=== PATIENT | male | born 1955 | race Hispanic/Latino ===

== ENCOUNTER → 2018-06-11 | Outpatient (CLI) | payer OTHER ==
--- NOTE | 2018-06-11 11:29 | Diagnostic Imaging Report ---
PROCEDURE:US LIVER COMPARISON:None. INDICATIONS:ALCOHOLIC CIRRHOSIS W/O ASCITES TECHNIQUE: Gonsalves-scale and color doppler transverse and longitudinal images of the right upper quadrant of the abdomen were obtained. FINDINGS: Liver: 12 cm in right mid-clavicular line. Increased echogenicity. Nodular contour. No masses. 1.9 cm subcapsular left lobe cyst. Main portal vein: 0.7 cm Gallbladder: 1.8 cm gallstone. Common Bile Duct: 0.3 cm Sonographic Henriquez's sign: Negative Right kidney: 12.2 cm. Normal echogenicity. No solid masses or hydronephrosis. 3.8 x 3.5 x 4.7 cm mid/inferior pole cyst. Pancreas: The visualized portions are unremarkable. Inferior vena cava: Patent Aorta: Atherosclerotic disease of the abdominal aorta. Ascites: None in the right upper quadrant of the abdomen. CONCLUSION: Cirrhotic changes of the liver as well as steatosis. Cholelithiasis without evidence of cholecystitis. 4.7 cm right renal cyst. Anechoic 1.9 cm lesion abutting the left hepatic lobe, likely a subcapsular cyst. Dictated by: Akhil Rodriguez M.D. on 06/11/2018 at 11:33 Electronically approved by: Akhil Rodriguez M.D. on 06/11/2018 at 11:33
== END ==
LOC: US 09:35
PROVIDERS: ATTEND Internal Medicine Gastroenterology
DX: K70.30 Alcoholic cirrhosis of liver without ascites (principal)
CPT/HCPCS: 76705

== ENCOUNTER 2018-06-16 12:58 | Observation (INO) | payer OTHER ==
[~2018-06-16] VITALS: Ht 165.1 cm; Wt 86.6 kg
[2018-06-16] MEDS ORDERED: ASPIRIN 325 MG TAB PO ONE (13:15)
[2018-06-16 13:28] LABS: BASOPHILS % 0.6 % (0.0-1.0); EOSINOPHILS # (AUTO) 0.1 (0.0-0.4); EOSINOPHILS % 1.1 % (0.0-6.0); HEMATOCRIT 36.6 % (38.2-49.6); HEMOGLOBIN 12.4 g/dL (14.0-18.0); LYMPHOCYTES % 44.8 % (18.0-39.1); MEAN CORPUSCULAR HEMOGLOBIN 31.6 pg (28-32); MEAN CORPUSCULAR HGB CONC 33.9 g/dL (31-35); MEAN CORPUSCULAR VOLUME 93.1 fL (81-99); MONOCYTES # (AUTO) 0.7 (0.2-0.8); MONOCYTES % 10.7 % (4.4-11.3); NEUTROPHILS # (AUTO) 2.8 (2.1-6.9); NEUTROPHILS % 42.3 % (38.7-80.0); PLATELET COUNT 174 x10e3/uL (140-360); RED BLOOD COUNT 3.93 x10e6/uL (4.3-5.7); RED CELL DISTRIBUTION WIDTH 14.1 % (11.7-14.4)
[2018-06-16] MEDS ORDERED: ASPIRIN 81 MG CHEW TAB PO ONE ×2 (13:30→15:00)
[2018-06-16 13:38] LABS: INR 1.02; PROTHROMBIN TIME 12.6 seconds (11.9-14.5)
[2018-06-16 13:39] LABS: PARTIAL THROMBOPLASTIN TIME 31.2 seconds (23.8-35.5)
[2018-06-16 13:48] LABS: ALANINE AMINOTRANSFERASE 28 IU/L (0-55); ALBUMIN 3.8 g/dL (3.5-5.0); ALBUMIN/GLOBULIN RATIO 1.3 (0.8-2.0); ALKALINE PHOSPHATASE 83 IU/L (40-150); ANION GAP 13.4 mmol/L (8-16); BLOOD UREA NITROGEN 12 mg/dL (7-26); BUN/CREATININE RATIO 16 (6-25); CALCIUM 9.3 mg/dL (8.4-10.2); CARBON DIOXIDE 27 mmol/L (22-29); CHLORIDE 104 mmol/L (98-107); CREATINE KINASE 99 IU/L (30-200); CREATININE, SERUM 0.74 mg/dL (0.72-1.25); EST GLOMERULAR FILTRATION RATE > 60 ML/MIN (60-); GLUCOSE 134 mg/dL (74-118); POTASSIUM 3.4 mmol/L (3.5-5.1); SODIUM 141 mmol/L (136-145)
--- NOTE | 2018-06-16 14:16 | Diagnostic Imaging Report ---
EXAMINATION: CHEST SINGLE (NOT PORTABLE) HISTORY: Chest pain. COMPARISON: None FINDINGS: TUBES and LINES: None. LUNGS: Lungs are mildly hypoinflated bilaterally. Mild bibasilar subsegmental atelectasis. There is no evidence of pneumonia or pulmonary edema. PLEURA: No pleural effusion or pneumothorax. HEART AND MEDIASTINUM: The cardiomediastinal silhouette is magnified by portable technique. BONES AND SOFT TISSUES: No acute osseous lesion. Soft tissues are unremarkable. UPPER ABDOMEN: No free air under the diaphragm. IMPRESSION: No acute thoracic abnormality. Signed by: Dr. Mike Camarena M.D. on 06/16/2018 2:12 PM
[2018-06-16] MEDS ORDERED: SPIRONOLACTONE25 MG PO (14:49)
[2018-06-16] MEDS ORDERED: METFORMIN HCL500 MG PO (14:49)
[2018-06-16] MEDS ORDERED: FERROUS SULFAT325 MG PO (14:49)
[2018-06-16] MEDS ORDERED: FOLIC ACID1 MG PO (14:49)
[2018-06-16] MEDS ORDERED: LISINOPRIL-HCT1 EAC2 PO (14:49)
[2018-06-16 16:30] VITALS: BP 149/70
[2018-06-16] MEDS ORDERED: DEXTROSE 50% SYRINGE 50 ML IV PRN (16:30)
[2018-06-16] MEDS: INSULIN LISPRO 100 UNIT/1 ML 3ML VIAL SQ SCH ×2 (16:30→20:59)
[2018-06-16 17:08] VITALS: BP 149/70
[2018-06-16 17:10] VITALS: BP 149/70
[2018-06-16 17:14] VITALS: BP 149/70
[2018-06-16] MEDS ORDERED: HYDRALAZINE HCL 20 MG/ML VIAL IV PRN (18:45)
[2018-06-16] MEDS ORDERED: ACETAMINOPHEN 325 MG TAB PO PRN (18:45)
[2018-06-16] MEDS ORDERED: ONDANSETRON HCL INJ 2 MG/ML VIAL IV PRN (18:45)
[2018-06-16] MEDS ORDERED: POTASSIUM CHLORIDE 20 MEQ TAB CR PO NR (18:51)
[2018-06-16] MEDS ORDERED: MORPHINE SULFATE INJ 4 MG/ML INJ IV PRN (19:00)
[2018-06-16 20:00] VITALS: BP 115/66
[2018-06-17] VITALS (11 sets, daily range): BP systolic 101–128; BP diastolic 60–70
[2018-06-17 05:21] LABS: BASOPHILS % 0.7 % (0.0-1.0); EOSINOPHILS # (AUTO) 0.1 (0.0-0.4); HEMATOCRIT 34.8 % (38.2-49.6); HEMOGLOBIN 11.7 g/dL (14.0-18.0); LYMPHOCYTES # (AUTO) 2.5 (1.0-3.2); MEAN CORPUSCULAR HEMOGLOBIN 31.4 pg (28-32); MEAN CORPUSCULAR HGB CONC 33.6 g/dL (31-35); MEAN CORPUSCULAR VOLUME 93.3 fL (81-99); MONOCYTES # (AUTO) 0.5 (0.2-0.8); MONOCYTES % 8.8 % (4.4-11.3); NEUTROPHILS # (AUTO) 2.4 (2.1-6.9); PLATELET COUNT 160 x10e3/uL (140-360); RED BLOOD COUNT 3.73 x10e6/uL (4.3-5.7)
[2018-06-17 05:34] LABS: CHOL/HDL RATIO 3.3 (3.9-4.7)
[2018-06-17 05:44] LABS: ANION GAP 14.9 mmol/L (8-16); BLOOD UREA NITROGEN 11 mg/dL (7-26); BUN/CREATININE RATIO 16 (6-25); CARBON DIOXIDE 25 mmol/L (22-29); CHLORIDE 106 mmol/L (98-107); EST GLOMERULAR FILTRATION RATE > 60 ML/MIN (60-); GLUCOSE 100 mg/dL (74-118); MAGNESIUM 1.9 MG/DL (1.3-2.1); POTASSIUM 3.9 mmol/L (3.5-5.1); SODIUM 142 mmol/L (136-145)
[2018-06-17 05:51] LABS: CREATINE KINASE 54 IU/L (30-200)
[2018-06-17] MEDS: INSULIN LISPRO 100 UNIT/1 ML 3ML VIAL SQ SCH ×4 (07:30→19:47)
[2018-06-17] MEDS: FAMOTIDINE 20 MG TAB PO SCH ×2 (07:44→16:28)
[2018-06-17] MEDS: LISINOPRIL 10 MG TAB PO SCH (09:01)
[2018-06-17] MEDS: SPIRONOLACTONE 25 MG TAB PO SCH (09:01)
[2018-06-17] MEDS: ASPIRIN 81 MG ENTERIC COATED PO SCH (09:01)
[2018-06-17] MEDS: ENOXAPARIN SOD INJ 40 MG/0.4 ML SYR SC SCH (09:02)
[2018-06-17] MEDS ORDERED: HYDRALAZINE HCL 20 MG/ML VIAL IV PRN (09:45)
[2018-06-17] MEDS ORDERED: METOPROLOL TARTRATE INJ 1 MG/ML VIAL IV PRN (09:45)
[2018-06-17 10:01] LABS: ALBUMIN 3.4 g/dL (3.5-5.0); BILIRUBIN,DIRECT 0.4 mg/dL (0.0-0.5); MAGNESIUM 1.9 MG/DL (1.3-2.1)
[2018-06-17 10:20] LABS: THYROID STIMULATING HORMONE 1.786 uIU/mL (0.350-4.940)
[2018-06-17 13:21] LABS: CREATINE KINASE MB 0.8 ng/mL (0-5.0)
[2018-06-18 04:00] VITALS: BP 111/71
[2018-06-18 05:18] LABS: BASOPHILS % 0.6 % (0.0-1.0); EOSINOPHILS # (AUTO) 0.1 (0.0-0.4); EOSINOPHILS % 2.5 % (0.0-6.0); HEMATOCRIT 34.4 % (38.2-49.6); HEMOGLOBIN 11.7 g/dL (14.0-18.0); LYMPHOCYTES # (AUTO) 1.9 (1.0-3.2); LYMPHOCYTES % 36.7 % (18.0-39.1); MEAN CORPUSCULAR HEMOGLOBIN 31.6 pg (28-32); MONOCYTES # (AUTO) 0.5 (0.2-0.8); MONOCYTES % 8.9 % (4.4-11.3); NEUTROPHILS # (AUTO) 2.7 (2.1-6.9); NEUTROPHILS % 50.5 % (38.7-80.0); PLATELET COUNT 158 x10e3/uL (140-360); RED CELL DISTRIBUTION WIDTH 13.7 % (11.7-14.4)
[2018-06-18 05:42] LABS: ALANINE AMINOTRANSFERASE 27 IU/L (0-55); ALBUMIN 3.6 g/dL (3.5-5.0); ALKALINE PHOSPHATASE 63 IU/L (40-150); ANION GAP 11.1 mmol/L (8-16); BLOOD UREA NITROGEN 14 mg/dL (7-26); BUN/CREATININE RATIO 19 (6-25); CALCIUM 9.2 mg/dL (8.4-10.2); CARBON DIOXIDE 27 mmol/L (22-29); CHLORIDE 107 mmol/L (98-107); CREATININE, SERUM 0.74 mg/dL (0.72-1.25); EST GLOMERULAR FILTRATION RATE > 60 ML/MIN (60-); GLUCOSE 112 mg/dL (74-118); MAGNESIUM 2.5 MG/DL (1.3-2.1); POTASSIUM 4.1 mmol/L (3.5-5.1); SODIUM 141 mmol/L (136-145)
[2018-06-18 06:50] LABS: BILIRUBIN,DIRECT 0.3 mg/dL (0.0-0.5)
[2018-06-18 07:30] VITALS: BP 130/66
[2018-06-18] MEDS: INSULIN LISPRO 100 UNIT/1 ML 3ML VIAL SQ SCH (07:30)
[2018-06-18] MEDS: FAMOTIDINE 20 MG TAB PO SCH (08:03)
[2018-06-18 08:09] VITALS: BP 130/66
[2018-06-18] MEDS: LISINOPRIL 10 MG TAB PO SCH (08:40)
[2018-06-18] MEDS ORDERED: ASPIR 8181 MG PO (08:40)
[2018-06-18] MEDS: ASPIRIN 81 MG ENTERIC COATED PO SCH (08:40)
[2018-06-18] MEDS: SPIRONOLACTONE 25 MG TAB PO SCH (08:40)
[2018-06-18] MEDS: ENOXAPARIN SOD INJ 40 MG/0.4 ML SYR SC SCH (08:40)
[2018-06-18] MEDS ORDERED: NEOMYCIN/POLYMYXIN/BACITRACIN 15 GM TUBE TOP SCH (09:00)
--- NOTE | 2018-06-19 05:18 | Discharge Summary ---
ADMISSION DIAGNOSES 1. Chest pain. 2. Sinus bradycardia. 3. Hypertension. 4. Type 2 diabetes. 5. Hypokalemia. 6. Gastroesophageal reflux disease. DISCHARGE DIAGNOSES 1. Chest pain. 2. Sinus bradycardia. 3. Hypertension. 4. Type 2 diabetes. 5. Hypokalemia. 6. Gastroesophageal reflux disease. 7. Rule out acute coronary syndrome. HISTORY: Patient has a history of cirrhosis, type 2 diabetes, hypertension, and GERD. Surgical history of left leg fracture repair. HOSPITAL COURSE: A 63-year-old male complains of intermittent aching left chest pain that began 4 days ago while at work at the [employer]. He went to his PCP who sent him to the ER due to an abnormal echo and EKG. Nothing worsened the pain. Pain is improved with stretching and massaging the area. He denies dizziness, syncope, with no radiation. Troponins were negative times 3. EKG showed sinus bradycardia. Patient was given aspirin on admission and echo showed EF of 60% to 65% with mild tricuspid regurgitation. Patient remained asymptomatic from his bradycardia throughout hospitalization. He was resumed on his home medicines for blood pressure, diabetes, and GERD. His potassium was repleted and remained within normal limits during hospitalization. Per cardio, this patient is okay to discharge home on aspirin only. He does not need a beta nahun due to his bradycardia. Patient will resume home medicines plus aspirin daily and follow up with cardiology and primary care in 1 to 2 weeks. Patient understands discharge instructions and agrees to plan. Vital signs stable. Patient afebrile. Dictated by Laura Lang NP LIAM PICKETT MD Job#: [id number]
== END 2018-06-18 09:50 | disposition home or self-care (01) ==
LOC: ER 12:58 → ERHOLD 15:30 → IMCU 16:25
PROVIDERS: ADMIT Internal Medicine; ATTEND Internal Medicine
DX: R07.89 Other chest pain (principal); I10 Essential (primary) hypertension; E11.9 Type 2 diabetes mellitus without complications; E78.5 Hyperlipidemia, unspecified; K21.9 Gastro-esophageal reflux disease without esophagitis; K74.60 Unspecified cirrhosis of liver; R00.1 Bradycardia, unspecified; E87.6 Hypokalemia; F10.10 Alcohol abuse, uncomplicated; E83.41 Hypermagnesemia
CPT/HCPCS: 36415 ×3; 71045; 80048 ×2; 80053; 80061; 80076 ×2; 82140; 82550 ×2; 82553 ×2; 82948 ×3; 83036; 83735 ×2; 83880; 84100; 84443; 84484 ×2; 84550; 85025 ×3; 85610; 85730; 93005; 93306; 99284; G0378 ×3; J1650 ×2